=== PATIENT | female | born 1990 | race Caucasian/White ===

== ENCOUNTER 2018-05-19 12:49 | Outpatient (CLI) | payer BC ==
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
== END 2018-05-19 12:50 | disposition home or self-care (01) ==
LOC: SCSRAD 12:49
PROVIDERS: ATTEND Chiropractor
DX: S16.1XXA Strain of muscle, fascia and tendon at neck level, initial encounter (principal); M43.12 Spondylolisthesis, cervical region
CPT/HCPCS: 72050